=== PATIENT | female | born 1985 | race Caucasian/White ===

== ENCOUNTER 2021-07-21 10:03 | Emergency (ER) | payer MEDICAID, SELFPAY ==
[2021-07-21 10:11] VITALS: BP 146/82; PULSE 92; RESP 16; TEMP 36.9; O2SAT 97; BMI 35.4
--- NOTE | 2021-07-21 11:06 | ED_ITS ---
HPI - URI/Sore Throat General Chief Complaint: Upper Respiratory Symptoms Stated Complaint: irregular heartbeat, sob Time Seen by Provider: 07/21/21 11:05 Source: patient Mode of arrival: ambulatory Limitations: no limitations History of Present Illness HPI Narrative: 35-year-old female presents for 3 days of dry cough, scratchy throat, runny nose, who feels somewhat short of breath and has had heart palpitations. Her was diagnosed with COVID yesterday, and has been ill for the past 3 days. She had diarrhea 4 times yesterday, and diarrhea once today. No nausea or vomiting. No fevers. She is not on any medications and is healthy at baseline. Patient has had no hemoptysis, no unilateral leg swelling, no recent surgery or trauma, no prior blood clot, she is not on any oral control or hormone use MD elicited complaint: cough, sore throat and rhinorrhea Onset (ago): day(s) (3) Consistency: constant Severity: mild Description of mucous: watery Able to tolerate fluids by mouth: Yes Exacerbating factors: nothing Relieving factors: nothing Context: sick contacts Associated symptoms: rhinorrhea, nasal congestion, sore throat and diarrhea Treatments prior to arrival: none Related Data Previous Rx's Medication Instructions Recorded albuterol sulfate 90 mcg/actuation 2 puff INHALATION Q4-6H 5 Days 07/21/21 aerosol inhaler #8.5 g Allergies Allergy/AdvReac Type Severity Reaction Status Date / Time No Known Allergies Allergy Unverified 07/22/20 15:28 Review of Systems Constitutional: Constitutional: Denies body ache(s), Denies chills, Denies fatigue, Denies fever(s), Denies headache(s), Denies malaise and Denies weakness Eyes: Eyes: Denies diplopia ENT: Denies vertigo, Denies dizziness, Denies otalgia, Denies headache(s), Reports nasal congestion, Reports nasal discharge and Denies throat swelling Comments: Scratchy throat Cardiovascular: Cardiovascular: Denies chest pain, Denies chest pain at rest, Denies chest pain with activity, Denies Epigastric Pain, Denies syncope, Denies leg edema, Denies lightheadedness, Reports palpitations, Reports dyspnea, Denies dyspnea on exertion and Denies orthopnea Respiratory: Respiratory: Denies chest congestion, Reports cough, Reports dyspnea, Denies dyspnea on exertion and Reports wheezing Gastrointestinal: Gastrointestinal: Denies abdominal pain, Denies melena, Denies hematochezia, Reports diarrhea, Denies nausea and Denies vomiting Musculoskeletal: Musculoskeletal: Reports no additional musculoskeletal complaints Neurologic: Denies confusion, Denies vertigo, Denies dizziness, Denies syncope, Denies headache(s) and Denies weakness Psychiatric: Psychiatric: Denies anxiety, Denies confusion and Denies depression Endocrine: Endocrine: Denies fatigue and Reports palpitations Allergic/Immunologic: Allergic/Immunologic: Denies throat swelling and Reports wheezing PMFSH Past Medical History Surgical History Hx of cholecystectomy Social History Social History Advance Directives: No Patient : No Physical Exam Vital Signs: Vital Signs: Last Vital Signs Temp 98.5 F 07/21/21 10:11 Pulse 84 07/21/21 11:57 Resp 16 07/21/21 10:11 BP 146/82 H 07/21/21 10:11 Pulse Ox 97 07/21/21 10:11 Body Mass Index 35.4 Const: General: No confusion Nutritional Appearance: well nourished Orientation/consciousness: No confusion Limitations: no limitations HENMT: Head: Yes normal to inspection, Yes normocephalic and Yes atraumatic Ears: hearing grossly normal bilaterally, external ears normal, TM's normal bilaterally and EAC's normal General nose exam: Normal external nose present Face and sinus: Yes normal facial exam and Yes sinuses nontender Mouth: Normal oral and palatal mucosa present Throat: Yes posterior oropharynx normal Eyes: Conjunctivae: conjunctivae normal Pupils: Equal, round and reactive pupils present EOM: EOMs intact bilaterally Neck: Neck: Yes full ROM, Yes no lymphadenopathy and Yes supple Resp: Effort & Inspection: normal respiratory effort and able to speak in complete sentences Auscultation: clear to auscultation bilaterally and diminished lung sounds (mild, diffusely) Cardio: Rate: regular rate Rhythm: regular rhythm Heart sounds: S1 normal heart sound present and S2 normal heart sound present GI: Inspection: Yes normal to inspection Palpation (GI): Soft to palpation, nontender, no guarding and not rigid Percussion: Yes normal to percussion Auscultation: normal bowel sounds Skin: General skin exam: no rashes or lesions noted Neuro: General: No confusion Cranial nerves: Yes Equal, round and reactive pupils present Extrem: General: Yes normal to inspection and Yes full ROM Psych: Appearance: grossly normal Affect: normal affect Attitude: cooperative Thought process: Normal thought process present Course Course Course Narrative: 35-year-old female who tested COVID positive here today presents for 3 days of dry cough, mild shortness of breath, palpitations On exam, patient is mildly diminished in all lung devi. Patient is well- appearing, is not hypoxic or tachycardic. Given patient's COVID positive status, gave her information to quarantine, gave her albuterol inhaler, return precautions. EKG showed normal sinus, no ischemic changes MDM - URI/Sore Throat Lab Data Labs: Lab Results 07/21/21 Range/Units 10:18 Coronavirus (PCR) POSITIVE A (Negative) Influenza Type A (PCR) NEGATIVE (Negative) Influenza Type B (PCR) NEGATIVE (Negative) RSV RNA Qual (PCR) NEGATIVE (Negative) ECG Data Interpretation: Sinus with a rate of 85, MS interval 134, QRS 72, QTC 411, normal axis, no ST elevations ST depressions or T-wave changes Discharge Plan Discharge Clinical Impression: COVID-19 Patient Disposition: Home, Self-Care Instructions: COVID-19 (Coronavirus Disease 2019) (ED) Additional Instructions: You tested COVID positive today. Please quarentine, stay home for least 1 week since your last symptoms.. Please follow guidance in the CDC handout I gave to you. If you have worsening shortness of breath, chest pain, cough, please return to be seen. Please use your albuterol inhaler, 2 puffs every 4 hours the 5 days, I think it will help with your shortness of breath Prescriptions: New albuterol sulfate 90 mcg/actuation HFA aerosol inhaler 2 puff inhalation Q4-6H 5 Days Qty: 8.5 RF: 0
--- NOTE | 2021-07-21 11:18 | ECG_ITS ---
Test Reason : UPPER RESP Blood Pressure : / mmHG Vent. Rate : 085 BPM Atrial Rate : 085 BPM P-R Int : 134 ms QRS Dur : 072 ms QT Int : 346 ms P-R-T Axes : 023 011 001 degrees QTc Int : 411 ms Normal sinus rhythm Normal ECG No previous ECGs available Referred By: Amber Neil Electronically Signed By:GIOVANI NAVARRETE
[2021-07-21] MEDS: Albuterol Sulfate 90 MCG 8 GM INHALER 2 PUFF INHALE (11:56)
[2021-07-21 11:57] VITALS: PULSE 84; O2SAT 96
[2021-07-21 12:01] LABS: Influenza A PCR NEGATIVE (Negative); Influenza B PCR NEGATIVE (Negative); Resp Syncy Virus RNA Qual PCR NEGATIVE (Negative); SARS COV2 PCR INHOUSE POSITIVE (Negative)
== END 2021-07-21 12:33 | disposition home or self-care (01) ==
PROVIDERS: Emergency Provider Emergency Medicine; PCP Family Medicine
DX: U07.1 COVID-19 (principal); R06.02 Shortness of breath; R05 Cough; Z79.899 Other long term (current) drug therapy
CPT/HCPCS: 0241U; 36415; 93005; 94640; 94664; 99283; 99284

== ENCOUNTER 2022-12-19 10:06 | Emergency (ER) | payer MEDICAID, SELFPAY ==
[2022-12-19 10:11] VITALS: BP 150/91; PULSE 111; RESP 20; TEMP 36.3; O2SAT 96; BMI 35.4
[2022-12-19 10:54] LABS: Basophils Percent Auto 0.2 % (0-2); Hematocrit 41.5 % (37.0-47.0); Hemoglobin 13.1 g/dl (12.0-16.0); Imm Gran Abs Auto 0.06 X10*3/uL (0.00-0.03); Imm Gran Pct Auto 0.4 % (0.0-0.4); Lymphocytes Absolute Auto 0.5 X10*3/uL (1.2-4.9); Lymphocytes Percent Auto 3.4 % (20-40); MANUAL DIFF FLAG SCAN; Mean Corpuscular HGB Conc 31.6 g/dl (31.0-35.0); Mean Corpuscular Hemoglobin 25.1 pg (27.0-33.0); Mean Corpuscular Volume 79.5 fL (80.0-98.0); Monocytes Absolute Auto 0.6 X10*3/uL (0.1-1.2); Monocytes Percent Auto 4.2 % (2-11); Neutrophils Absolute Auto 13.7 x10*3/uL (2.0-8.3); Neutrophils Percent Auto 91.8 % (45-73); Platelet Count 296 X10*3/uL (160-400); Red Blood Count 5.22 X10*6/uL (4.20-5.50); Red Cell Distribution Width 13.7 % (11.0-16.0); SCAN SMEAR FLAG 1; White Blood Count 14.9 X10*3/uL (4.8-10.8)
[2022-12-19 11:09] LABS: Alanine Aminotransferase 17 U/L (0-31); Albumin Level 4.3 g/dL (3.5-5.0); Alkaline Phosphatase 82 U/L (39-117); Anion Gap 14 (12-20); Aspartate Amino Transferase 14 U/L (5-31); Bilirubin Direct 0.2 mg/dL (0.0-0.5); Blood Urea Nitrogen 14 mg/dL (9-16); Calcium 9.3 mg/dL (8.4-10.2); Carbon Dioxide 25 mmol/L (22-29); Chloride 103 mmol/L (96-108); Creatinine Clr Calc Pharmacy 115.9; Estimated Glomerular Filt Rate > 60; Glucose Random 132 mg/dL (60-115); Lipase 13 U/L (8-78); Potassium 4.1 mmol/L (3.3-5.1); Sodium 138 mmol/L (135-145); Total Protein 7.5 g/dL (6.5-8.0)
[2022-12-19 11:10] LABS: COVID-19 Test Negative (Negative); IDNOW Serial# BCCEAD1C
[2022-12-19 11:46] LABS: SLIDE REVIEW VERIFIED
== END 2022-12-19 15:43 | disposition left against medical advice (07) ==
PROVIDERS: Emergency Provider Student in an Organized Health Care Education/Training Program; PCP Family Medicine
DX: R42 Dizziness and giddiness (principal); M79.605 Pain in left leg; M79.604 Pain in right leg; Z20.822 Contact with and (suspected) exposure to COVID-19; Z20.828 Contact with and (suspected) exposure to other viral communicable diseases; Z79.899 Other long term (current) drug therapy
CPT/HCPCS: 80048; 80076; 83690; 85025; 87635; 99281; 99282; 99283

== ENCOUNTER 2025-06-28 07:48 | Emergency (ER) | payer MEDICAID, SELFPAY ==
--- NOTE | ~2025-06-28 | US_ITS ---
CLINICAL HISTORY: Elevated transaminases, itchy. r o acute hepatitis US abdomen limited Comparison: None provided Findings: Liver is mildly enlarged measuring 15.5 cm in length and demonstrates normal echogenicity. No hepatic mass lesion. No evidence of intrahepatic bile duct dilatation. IMPRESSION: Liver is mildly enlarged measuring 15.5 cm in length and demonstrates normal echogenicity. This document has been electronically signed by: Chrissy Arreola MD on 06/28/2025 10:37:25
[2025-06-28 07:52] VITALS: BP 156/73; PULSE 88; RESP 16; TEMP 36.2; O2SAT 97; BMI 40.2
--- NOTE | 2025-06-28 08:42 | ED_ITS ---
HPI - General Adult General Chief complaint: General Medical Stated complaint: rash around body Time Seen by Provider: 06/28/25 08:19 Source: patient Mode of arrival: ambulatory Limitations: no limitations History of Present Illness ED Provider: SAE Zurita HPI narrative: 39-year-old female history of obesity presents with itchiness throughout her entire body however worse on the palms and soles of her hands. Ongoing for the past week worsening over the past few days. Reports this started after a very hot day. Patient lives at home with . Nobody else at home has these symptoms. There is no visible rash. She states clonidine has helped which she is prescribed. She denies any new allergens such as lotions, detergents, foods. Denies chest pain, shortness of breath, nausea, vomiting, diarrhea, abdominal pain. Related Data Previous Rx's ?Medication ?Instructions ?Recorded albuterol sulfate 90 mcg/actuation 2 puff inhalation Q 4-6H 5 days 07/21/21 aerosol inhaler #8.5 grams hydroxyzine HCl 25 mg tablet 25 mg PO BID PRN itching #30 tabs 06/28/25 Allergies Allergy/AdvReac Type Severity Reaction Status Date / Time No Known Allergies Allergy Verified 06/28/25 07:52 Review of Systems 2 Review of Systems: Yes all other systems are reviewed and are negative PMFSH Past Medical History Attestation statement: The following information was validated with the patient. Source: old records reviewed and nursing notes reviewed Surgical History Hx of cholecystectomy Social History Social History Unable to assess alcohol history related to: Unknown Smoked in Last 30 Days: No Use of substances other than those prescribed or required for medical reasons: No Advance Directives: No Advance Directives Information Provided: No Do you have a plan to hurt others: No Plan Physical Exam ED Exam Exam: Appearance: Alert.? Oriented X3.? No acute distress.? Head: Normocephalic, atraumatic, no step-offs or deformities Eyes: Pupils equal, round and reactive to light.? ENT: Pharynx normal.? Neck: Normal inspection.? Neck supple.? CVS: Normal heart rate and rhythm.? Pulses normal.? Respiratory: No respiratory distress.? Breath sounds normal.? Abdomen: Soft and nontender.? Skin: Skin warm and dry.? Normal skin color.? Normal skin turgor.?No burrows Extremities: No lower extremity edema.? No calf ttp. 5/5 strength to bilateral upper and lower extremities Neuro: Oriented X 3.? No motor deficit.? No sensory deficit. CN 2-12 intact Vital Signs: Vital Signs - 24 hr 06/28/25 07:52 Temperature 97.1 F Pulse Rate 88 Respiratory Rate 16 Blood Pressure 156/73 H Pulse Oximetry 97 Oxygen Delivery Method Room Air BMI result Body Mass Index 40.2 vss Course Reevaluation(s) Reevaluation #1: Due to itchiness I ordered labs to ensure this was not a hepatic process patient's CBC with no acute findings. Chemistry no acute findings needing intervention however she is noted to have a 2-1 elevation AST to ALT. AST 55 ALT 103 this is deviating from her bed baseline. Therefore, an ultrasound was ordered ultrasound showed liver mildly enlarged measuring 15.5 cm in length and demonstrates normal echogenicity. Time: 10:46 Reevaluation #2: Patient will be discharged I have asked her not to drink alcohol and to call her PCP tomorrow Educated patient on diagnosis and treatment plan, answered all question, patient verbalizes understanding. At this time patient will be discharged home, advised to return with new or worsening symptoms. Educated on worrisome signs and symptoms and when to return. At this time I feel comfortable discharge home. Time: 10:57 Medications Administered Discontinued Medications Generic Name Dose Route Start Last Admin Trade Name Freq PRN Reason Stop Dose Admin Hydroxyzine HCl 25 mg 06/28/25 08:36 06/28/25 10:05 Hydroxyzine Hcl 25 Mg Tablet PO 06/28/25 08:37 25 mg ONCE ONE Administration Medical Decision Making Medical Decision Making [facility] Narrative: 0842 39-year-old female presents with diffuse body itching worse on palms and soles x1 week PE benign History and physical exam consistent with nonspecific pruritus. No signs of urticaria, anaphylaxis, scabies. No visible rash on exam. Will rule out acute hepatitis Plan labs, Atarax Differential Diagnosis Differential Diagnoses: The differential diagnosis associated with the presentation includes (History and physical exam consistent with nonspecific pruritus. No signs of urticaria, anaphylaxis, scabies. No visible rash on exam. Will rule out acute hepatitis) Admission/Observation Consideration of admission/observation: Escalation of care including admission/observation considered (unlikely) Lab Data MDM Lab Attestation statement: I reviewed the patient's lab results. 06/28/25 08:55 06/28/25 08:55 Labs: Lab Results 06/28/25 06/28/25 Range/Units 08:55 09:46 WBC 8.6 (4.8-10.8) X10*3/uL RBC 5.18 (4.20-5.50) X10*6/uL Hgb 13.3 (12.0-16.0) g/dl Hct 40.7 (37.0-47.0) % MCV 78.6 L (80.0-98.0) fL MCH 25.7 L (27.0-33.0) pg MCHC 32.7 (31.0-35.0) g/dl RDW 14.4 (11.0-16.0) % Plt Count 305 (160-400) X10*3/uL MPV 9.9 (9.4-12.3) fL Immature Gran % (Auto) 0.8 H (0.0-0.4) % Neut % (Auto) 69.4 (45-73) % Lymph % (Auto) 22.9 (20-40) % Lassen % (Auto) 6.0 (2-11) % Eos % (Auto) 0.6 (0-4) % Baso % (Auto) 0.3 (0-2) % Lymph # (Auto) 2.0 (1.2-4.9) X10*3/uL Lassen # (Auto) 0.5 (0.1-1.2) X10*3/uL Eos # (Auto) 0.1 (0.0-0.4) X10*3/uL Baso # (Auto) 0.0 (0.0-0.2) X10*3/uL Abs Immat Gran (auto) 0.07 H (0.00-0.03) X10*3/uL Absolute Neuts (auto) 6.0 (2.0-8.3) x10*3/uL Absolute Nucleated RBC 0.000 (0.0-0.012) X10*3/uL Nucleated RBC % (auto) 0.0 (0.0-0.2) /100WBC Sodium 135 (135-145) mmol/L Potassium 4.2 (3.3-5.1) mmol/L Chloride 103 (96-108) mmol/L Carbon Dioxide 22 (22-29) mmol/L Anion Gap 14 (12-20) BUN 10 (9-16) mg/dL Creatinine 0.75 (0.5-1.4) mg/dL Estim Creat Clear Calc 115.4 Estimated GFR > 60 Random Glucose 164 H (60-115) mg/dL Calcium 9.6 (8.4-10.2) mg/dL Total Bilirubin 0.4 (0.0-1.0) mg/dL AST 55 H (5-31) U/L ALT 103 H (0-31) U/L Alkaline Phosphatase 116 (39-117) U/L Total Protein 8.1 H (6.5-8.0) g/dL Albumin 4.4 (3.5-5.0) g/dL Acetaminophen < 3 (<30) mcg/mL Critical Care Time Critical Care Time Critical Care Time: No Discharge Plan Discharge Clinical Impression: Itch of skin, Transaminitis Patient Disposition: Home, Self-Care Instructions: Itchy Skin (ED) Additional Instructions: Take your medications as prescribed. If you were prescribed antibiotics today, it is important that you take your medication to their entirety, do not skip any doses, do not finish them early. Follow-up with your primary care provider this week. Return to the emergency department with new or worsening symptoms. Such as fevers, chills, chest pain, shortness of breath, nausea, vomiting, dizziness, headache, vision changes, lethargy In case of emergency call 911 CLINICAL HISTORY: Elevated transaminases, itchy. r o acute hepatitis US abdomen limited Comparison: None provided Findings: Liver is mildly enlarged measuring 15.5 cm in length and demonstrates normal echogenicity. No hepatic mass lesion. No evidence of intrahepatic bile duct dilatation. IMPRESSION: Liver is mildly enlarged measuring 15.5 cm in length and demonstrates normal echogenicity. Prescriptions: New hydroxyzine HCl 25 mg tablet 25 mg PO BID PRN (Reason: itching) Qty: 30 0RF No Action albuterol sulfate 90 mcg/actuation HFA aerosol inhaler 2 puff inhalation Q4-6H 5 Days Qty: 8.5 0RF Referrals: Adrianna Navarro MD [Primary Care Provider, Internal Medicine] Print Language: Montserratian
[2025-06-28 08:58] LABS: MANUAL DIFF FLAG NO
[2025-06-28 09:02] LABS: Hematocrit 40.7 % (37.0-47.0); Hemoglobin 13.3 g/dl (12.0-16.0); Imm Gran Abs Auto 0.07 X10*3/uL (0.00-0.03); Imm Gran Pct Auto 0.8 % (0.0-0.4); Lymphocytes Absolute Auto 2.0 X10*3/uL (1.2-4.9); Mean Corpuscular HGB Conc 32.7 g/dl (31.0-35.0); Mean Corpuscular Hemoglobin 25.7 pg (27.0-33.0); Mean Corpuscular Volume 78.6 fL (80.0-98.0); NRBC Abs Auto 0.000 X10*3/uL (0.0-0.012); NRBC Pct Auto 0.0 /100WBC (0.0-0.2); Platelet Count 305 X10*3/uL (160-400); Red Blood Count 5.18 X10*6/uL (4.20-5.50); White Blood Count 8.6 X10*3/uL (4.8-10.8)
[2025-06-28 09:14] LABS: Alanine Aminotransferase 103 U/L (0-31); Albumin Level 4.4 g/dL (3.5-5.0); Alkaline Phosphatase 116 U/L (39-117); Anion Gap 14 (12-20); Aspartate Amino Transferase 55 U/L (5-31); Blood Urea Nitrogen 10 mg/dL (9-16); Calcium 9.6 mg/dL (8.4-10.2); Carbon Dioxide 22 mmol/L (22-29); Chloride 103 mmol/L (96-108); Creatinine Clr Calc Pharmacy 115.4; Estimated Glomerular Filt Rate > 60; Potassium 4.2 mmol/L (3.3-5.1); Sodium 135 mmol/L (135-145); Total Protein 8.1 g/dL (6.5-8.0)
[2025-06-28 10:12] LABS: Acetaminophen LAB < 3 mcg/mL (<30)
[2025-06-28 12:00] VITALS: BP 137/90; PULSE 90; RESP 16; TEMP 36.4; O2SAT 99
[2025-06-29 08:10] LABS: HBS Num1 565.12 mIU/mL (0-7.99); HBc Num1 0.06 S/CO (0.00-0.79); HBsAGNum1 0.34 S/CO (0.00-0.99); Hepatitis A Antibody IgM 0.13 Index (0-0.79); Hepatitis B Surface Antigen Negative (Negative); ~HepC Num1 0.09 S/CO (0.00-0.79); ~Hepatitis A Antibody IgM Nonreactive (Nonreactive); ~Hepatitis B Surface Antibody REACTIVE (Nonreactive); ~Hepatitis C Antibody Nonreactive (Nonreactive)
== END 2025-06-28 12:01 | disposition home or self-care (01) ==
PROVIDERS: Physician Assistant; Emergency Provider Emergency Medicine; PCP Family Medicine
DX: L29.9 Pruritus, unspecified (principal); R21 Rash and other nonspecific skin eruption; R74.01 Elevation of levels of liver transaminase levels
CPT/HCPCS: 36415; 76705; 80053; 80143; 85025; 86308; 86704; 86706; 86709; 86803; 87340; 99284

== ENCOUNTER → 2025-06-28 09:24 | Outpatient (BNV) | payer MEDICAID, SELFPAY | PROVIDERS: Emergency Provider Emergency Medicine; PCP Family Medicine; Visit Provider Radiology Diagnostic Radiology | DX: R74.01 Elevation of levels of liver transaminase levels (principal) | CPT/HCPCS: 76705 ==